=== PATIENT | male | born 1945 | race Hispanic/Latino ===

== ENCOUNTER 2019-04-11 15:09 | Emergency (ER) | payer MEDICARE, OTHER ==
[~2019-04-11] VITALS: Ht 170.2 cm; Wt 88.5 kg
--- OUTSIDE RECORDS SUMMARY | 2019-04-11 15:12 | XMS REPORT ---
Author Author [facility] Address Unknown Phone Unavailable Care Team Providers Care Career Development Manager Name Role Phone WILFRED BOATENG Unavailable Unavailable JUNE LISA Unavailable Unavailable Kavita MOORE Unavailable Unavailable Problems This patient has no known problems. Allergies, Adverse Reactions, Alerts This patient has no known allergies or adverse reactions. Medications This patient has no known medications. Results Test Description Test Time Test Comments Text Results Atomic Results Result Comments TSH/FREE T4 IF INDICATED 2019-01-07 12:37:00 THYROID STIMULATING HORMONE (BEAKER) (test dkxs=072) 1.93 uIU/mL 0.35-4.94 HEMOGLOBIN [id number] 12:36:00* Test Item Value Reference Range Comments HEMOGLOBIN A1C (BEAKER) (test affl=261) 5.8 % 4.3-6.1 COMPREHENSIVE METABOLIC [id number] 12:03:00* Test Item Value Reference Range Comments TOTAL PROTEIN (BEAKER) (test elnu=119) 7.4 gm/dL 6.0-8.3 ALBUMIN (BEAKER) (test ytil=1281) 4.4 g/dL 3.5-5.0 ALKALINE PHOSPHATASE (BEAKER) (test uvzj=726) 95 U/L 40-150 BILIRUBIN TOTAL (BEAKER) (test fyys=657) 0.4 mg/dL 0.2-1.2 SODIUM (BEAKER) (test niuu=776) 139 meq/L 136-145 POTASSIUM (BEAKER) (test oocm=749) 4.5 meq/L 3.5-5.1 CHLORIDE (BEAKER) (test fajc=161) 108 meq/L 98-107 CO2 (BEAKER) (test rcav=170) 23 meq/L 22-29 BLOOD UREA NITROGEN (BEAKER) (test hpbk=931) 24 mg/dL 7-21 CREATININE (BEAKER) (test prdn=273) 0.80 mg/dL 0.57-1.25 GLUCOSE RANDOM (BEAKER) (test tfib=919) 103 mg/dL 70-105 CALCIUM (BEAKER) (test snwa=521) 9.0 mg/dL 8.4-10.2 AST (SGOT) (BEAKER) (test mtcp=041) 18 U/L 5-34 ALT (SGPT) (BEAKER) (test bthd=969) 23 U/L 6-55 EGFR (BEAKER) (test iagp=6186) 95 mL/min/1.73 sq m ESTIMATED GFR IS NOT ACCURATE CREATININE CLEARANCE IN PREDICTING GLOMERULAR FILTRATION RATE. ESTIMATED GFR IS NOT APPLICABLE FOR DIALYSIS PATIENTS. CBC W/PLT COUNT & AUTO [id number] 11:43:00* Test Item Value Reference Range Comments WHITE BLOOD CELL COUNT (BEAKER) (test iaxb=394) 7.6 K/ L 3.5-10.5 RED BLOOD CELL COUNT (BEAKER) (test dysi=329) 4.60 M/ L 4.63-6.08 HEMOGLOBIN (BEAKER) (test omsc=013) 14.2 GM/DL 13.7-17.5 HEMATOCRIT (BEAKER) (test pxyy=536) 43.7 % 40.1-51.0 MEAN CORPUSCULAR VOLUME (BEAKER) (test bhso=587) 95.0 fL 79.0-92.2 MEAN CORPUSCULAR HEMOGLOBIN (BEAKER) (test tddz=508) 30.9 pg 25.7-32.2 MEAN CORPUSCULAR HEMOGLOBIN CONC (BEAKER) (test ktio=389) 32.5 GM/DL 32.3-36.5 RED CELL DISTRIBUTION WIDTH (BEAKER) (test wanu=952) 12.8 % 11.6-14.4 PLATELET COUNT (BEAKER) (test hoge=410) 250 K/CU MM 150-450 MEAN PLATELET VOLUME (BEAKER) (test owgg=467) 10.0 fL 9.4-12.4 NUCLEATED RED BLOOD CELLS (BEAKER) (test gbpe=103) 0 /100 WBC 0-0 NEUTROPHILS RELATIVE PERCENT (BEAKER) (test cnfx=436) 67 % LYMPHOCYTES RELATIVE PERCENT (BEAKER) (test taqv=575) 22 % MONOCYTES RELATIVE PERCENT (BEAKER) (test azno=554) 8 % EOSINOPHILS RELATIVE PERCENT (BEAKER) (test ellj=989) 3 % BASOPHILS RELATIVE PERCENT (BEAKER) (test acil=298) 1 % NEUTROPHILS ABSOLUTE COUNT (BEAKER) (test lfpd=268) 5.07 K/ L 1.78-5.38 LYMPHOCYTES ABSOLUTE COUNT (BEAKER) (test ucfe=750) 1.63 K/ L 1.32-3.57 MONOCYTES ABSOLUTE COUNT (BEAKER) (test agcj=499) 0.60 K/ L 0.30-0.82 EOSINOPHILS ABSOLUTE COUNT (BEAKER) (test qbxb=037) 0.19 K/ L 0.04-0.54 BASOPHILS ABSOLUTE COUNT (BEAKER) (test xilf=186) 0.04 K/ L 0.01-0.08 IMMATURE GRANULOCYTES-RELATIVE PERCENT (BEAKER) (test pmbu=3691) 0 % 0-1 HEMOGLOBIN [id number] 12:24:00* Test Item Value Reference Range Comments HEMOGLOBIN A1C (BEAKER) (test tkan=338) 6.2 % 4.3-6.1 TSH/FREE T4 IF [id number] 12:06:00* Test Item Value Reference Range Comments THYROID STIMULATING HORMONE (BEAKER) (test yzgw=051) 2.07 uIU/mL 0.35-4.94 LIPID [id number] 11:45:00* Test Item Value Reference Range Comments TRIGLYCERIDES (BEAKER) (test cldg=190) 175 mg/dL CHOLESTEROL (BEAKER) (test mroz=705) 65 mg/dL HDL CHOLESTEROL (BEAKER) (test lbgz=743) 22 mg/dL LDL CHOLESTEROL CALCULATED (BEAKER) (test bqda=559) 8 mg/dL Triglyceride Reference Range: Low Risk <150 Borderline 150-199 High Risk 200-499 Very High Risk >=500Cholesterol Reference Range: Low Risk <200 Borderline 200-239 High Risk >240HDL Cholesterol Reference Range: Low Risk >=60 High Risk <40LDL Cholesterol Reference Range: Optimal <100 Near Optimal 100-129 Borderline 130-159 High 160-189 Very High >=190 CBC W/PLT COUNT & AUTO [id number] 11:29:00* Test Item Value Reference Range Comments WHITE BLOOD CELL COUNT (BEAKER) (test qkid=511) 6.0 K/ L 3.5-10.5 RED BLOOD CELL COUNT (BEAKER) (test xqrk=290) 4.91 M/ L 4.63-6.08 HEMOGLOBIN (BEAKER) (test mvbc=904) 15.0 GM/DL 13.7-17.5 HEMATOCRIT (BEAKER) (test binh=611) 45.8 % 40.1-51.0 MEAN CORPUSCULAR VOLUME (BEAKER) (test ootg=482) 93.3 fL 79.0-92.2 MEAN CORPUSCULAR HEMOGLOBIN (BEAKER) (test myes=281) 30.5 pg 25.7-32.2 MEAN CORPUSCULAR HEMOGLOBIN CONC (BEAKER) (test qtbo=457) 32.8 GM/DL 32.3-36.5 RED CELL DISTRIBUTION WIDTH (BEAKER) (test dfnc=213) 12.4 % 11.6-14.4 PLATELET COUNT (BEAKER) (test vrlf=151) 237 K/CU MM 150-450 MEAN PLATELET VOLUME (BEAKER) (test pzty=171) 9.9 fL 9.4-12.4 NUCLEATED RED BLOOD CELLS (BEAKER) (test avwf=525) 0 /100 WBC 0-0 NEUTROPHILS RELATIVE PERCENT (BEAKER) (test wiwe=302) 62 % LYMPHOCYTES RELATIVE PERCENT (BEAKER) (test kfgw=180) 23 % MONOCYTES RELATIVE PERCENT (BEAKER) (test hcqd=228) 11 % EOSINOPHILS RELATIVE PERCENT (BEAKER) (test qbfv=510) 3 % BASOPHILS RELATIVE PERCENT (BEAKER) (test qpcp=402) 1 % NEUTROPHILS ABSOLUTE COUNT (BEAKER) (test huln=046) 3.73 K/ L 1.78-5.38 LYMPHOCYTES ABSOLUTE COUNT (BEAKER) (test wlcz=428) 1.39 K/ L 1.32-3.57 MONOCYTES ABSOLUTE COUNT (BEAKER) (test fcgw=954) 0.65 K/ L 0.30-0.82 EOSINOPHILS ABSOLUTE COUNT (BEAKER) (test otok=950) 0.17 K/ L 0.04-0.54 BASOPHILS ABSOLUTE COUNT (BEAKER) (test vojs=837) 0.04 K/ L 0.01-0.08 IMMATURE GRANULOCYTES-RELATIVE PERCENT (BEAKER) (test fzgp=5128) 1 % 0-1 CT, CHEST, WITHOUT [id number] 08:41:00FINAL REPORT TECHNIQUE: CT scan of the chest WITHOUT intravenous contrast. Dose modulation, iterative reconstruction, and/or weight-based adjustment of the mA/kV was utilized to reduce the radiation dose to as low as reasonably achievable. INDICATION: 72-year-old man with lung nodule. COMPARISON: Chest CTs 11/27/2016, 11/12/2015, and 01/03/2015. FINDINGS: ABSENCE OF INTRAVENOUS CONTRAST DECREASES SENSITIVITY FOR DETECTION OF FOCAL LESIONS AND VASCULAR PATHOLOGY. LINES/TUBES: None. LUNGS AND AIRWAYS: Central airways are patent. No con solidation or new pulmonary nodule. Unchanged benign scattered 3-5 mm bilateral pulmonary nodules. PLEURA: The pleural spaces are clear. HEART AND MEDIASTINUM: The visualized thyroid gland is normal. No significant mediastinal, hilar, or ax illary lymphadenopathy. The heart and pericardium are within normal limits. Athe rosclerotic coronary artery calcifications. Prominent main pulmonary artery hilda ures approximately 4 cm in diameter. SOFT TISSUES AND BONES: Degenerative change s of the visualized spine. 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 UPPER ABDOMEN: Prior cholecystectomy. Cyst in the visualized kidneys measure 2 cm on the right and 1.3 cm on the left. IMPRESSION:No acute or suspicious abnormalities in the chest. Unchanged benign 3-5 mm bilateral pulm onary nodules. No follow-up imaging recommended for these pulmonary nodules. Pro minent pulmonary artery, suggestive of pulmonary hypertension. Signed: Jarrett Montejo Verified Date/Time: 12/04/2017 08:41:38 Reading Location: [facility] Diagnostic Imaging Reading Room - [place] [address] GLOBIN [id number] 13:10:00* Test Item Value Reference Range Comments HEMOGLOBIN A1C (BEAKER) (test bjwz=072) 6.2 % 4.3-6.1 TSH/FREE T4 IF [id number] 12:07:00* Test Item Value Reference Range Comments THYROID STIMULATING HORMONE (BEAKER) (test xntw=302) 2.06 uIU/mL 0.35-4.94 LIPID [id number] 11:46:00* Test Item Value Reference Range Comments TRIGLYCERIDES (BEAKER) (test fbpg=058) 167 mg/dL CHOLESTEROL (BEAKER) (test fqlv=367) 72 mg/dL HDL CHOLESTEROL (BEAKER) (test soit=257) 25 mg/dL LDL CHOLESTEROL CALCULATED (BEAKER) (test rjxo=658) 14 mg/dL Triglyceride Reference Range: Low Risk <150 Borderline 150-199 High Risk 200-499 Very High Risk >=500Cholesterol Reference Range: Low Risk <200 Borderline 200-239 High Risk >240HDL Cholesterol Reference Range: Low Risk >=60 High Risk <40LDL Cholesterol Reference Range: Optimal <100 Near Optimal 100-129 Borderline 130-159 High 160-189 Very High >=190 COMPREHENSIVE METABOLIC [id number] 11:46:00* Test Item Value Reference Range Comments TOTAL PROTEIN (BEAKER) (test ljuo=647) 7.3 gm/dL 6.0-8.3 ALBUMIN (BEAKER) (test rhpe=5770) 4.3 g/dL 3.5-5.0 ALKALINE PHOSPHATASE (BEAKER) (test fbfe=150) 78 U/L 40-150 BILIRUBIN TOTAL (BEAKER) (test namb=620) 0.8 mg/dL 0.2-1.2 SODIUM (BEAKER) (test dplc=717) 140 meq/L 136-145 POTASSIUM (BEAKER) (test cjvc=758) 4.7 meq/L 3.5-5.1 CHLORIDE (BEAKER) (test xhie=328) 105 meq/L 98-107 CO2 (BEAKER) (test dcoc=048) 28 meq/L 22-29 BLOOD UREA NITROGEN (BEAKER) (test vbcj=888) 16 mg/dL 7-21 CREATININE (BEAKER) (test gwie=554) 0.74 mg/dL 0.57-1.25 GLUCOSE RANDOM (BEAKER) (test wfuh=093) 115 mg/dL 70-105 CALCIUM (BEAKER) (test blnh=301) 9.5 mg/dL 8.4-10.2 AST (SGOT) (BEAKER) (test netm=237) 19 U/L 5-34 ALT (SGPT) (BEAKER) (test yueu=218) 32 U/L 6-55 EGFR (BEAKER) (test cgkg=6106) 105 mL/min/1.73 sq m ESTIMATED GFR IS NOT ACCURATE CREATININE CLEARANCE IN PREDICTING GLOMERULAR FILTRATION RATE. ESTIMATED GFR IS NOT APPLICABLE FOR DIALYSIS PATIENTS. CBC W/PLT COUNT & AUTO [id number] 11:23:00* Test Item Value Reference Range Comments WHITE BLOOD CELL COUNT (BEAKER) (test wfmw=721) 6.9 K/ L 3.5-10.5 RED BLOOD CELL COUNT (BEAKER) (test xiew=542) 4.75 M/ L 4.63-6.08 HEMOGLOBIN (BEAKER) (test hwdx=914) 14.5 GM/DL 13.7-17.5 HEMATOCRIT (BEAKER) (test eskc=066) 43.6 % 40.1-51.0 MEAN CORPUSCULAR VOLUME (BEAKER) (test vist=606) 91.8 fL 79.0-92.2 MEAN CORPUSCULAR HEMOGLOBIN (BEAKER) (test fvto=761) 30.5 pg 25.7-32.2 MEAN CORPUSCULAR HEMOGLOBIN CONC (BEAKER) (test gfse=775) 33.3 GM/DL 32.3-36.5 RED CELL DISTRIBUTION WIDTH (BEAKER) (test lngk=846) 12.5 % 11.6-14.4 PLATELET COUNT (BEAKER) (test aobg=025) 227 K/CU MM 150-450 MEAN PLATELET VOLUME (BEAKER) (test rxgl=002) 10.0 fL 9.4-12.4 NUCLEATED RED BLOOD CELLS (BEAKER) (test bird=604) 0 /100 WBC 0-0 NEUTROPHILS RELATIVE PERCENT (BEAKER) (test aewy=608) 65 % LYMPHOCYTES RELATIVE PERCENT (BEAKER) (test honq=278) 22 % MONOCYTES RELATIVE PERCENT (BEAKER) (test szcz=953) 10 % EOSINOPHILS RELATIVE PERCENT (BEAKER) (test ifde=613) 3 % BASOPHILS RELATIVE PERCENT (BEAKER) (test jubz=028) 1 % NEUTROPHILS ABSOLUTE COUNT (BEAKER) (test ywjy=758) 4.49 K/ L 1.78-5.38 LYMPHOCYTES ABSOLUTE COUNT (BEAKER) (test ycpy=698) 1.49 K/ L 1.32-3.57 MONOCYTES ABSOLUTE COUNT (BEAKER) (test arsv=565) 0.69 K/ L 0.30-0.82 EOSINOPHILS ABSOLUTE COUNT (BEAKER) (test ucgu=603) 0.19 K/ L 0.04-0.54 BASOPHILS ABSOLUTE COUNT (BEAKER) (test pcyw=427) 0.04 K/ L 0.01-0.08 IMMATURE GRANULOCYTES-RELATIVE PERCENT (BEAKER) (test tssa=4537) 0 % 0-1 CT, BRAIN, WITHOUT [id number] 13:44:00FINAL REPORT CT head without contrast 04/01/2017 1:42 PM CLINICAL HISTORY: vertigo TECHNIQUE: Axial noncontrast CT images through the head were obtained. This examination was performed according to our departmental dose optimization program, which includes automated exposure control, adjustment of the mA and/or kV according to patient size, and/or use of iterated reconstruction technique. COMPARISON: 06/18/2016, 12/05/2014 FINDINGS: There is no hemorrhage, extra-axial collection, mass, hydrocephalus, or midline shift. There is small volume encephalomalacia in both peripetrous temporal lobes, as well as within the left frontoparietal operculum. There is generalized parenchymal volume loss. The visualized paranasal sinuses and mastoid air cells are well aerated. Chronic posttraumatic changes are suspected in the left maxilla and left nasal bone. The skull is otherwise intact. IMPRESSION: No intracranial hemorrhage or mass eff ect. Chronic appearing findings as discussed, stable when compared to 06/18/2016. If concern for acute pathology persists, further evaluation with MRI is recomme nded. Signed: Aubrey Gimenezeport Verified Date/Time: 04/01/2017 13:44:54 Reading Location: [facility] Rad[facility] Reading Room /[id number] 11:56:00* Test Item Value Reference Range Comments PROTIME (BEAKER) (test qibw=342) 14.2 seconds 11.7-14.7 INR (BEAKER) (test aifu=578) 1.1 <=5.9 PARTIAL THROMBOPLASTIN TIME (BEAKER) (test mmkh=072) 32.6 seconds 22.5-36.0 RECOMMENDED COUMADIN/WARFARIN INR THERAPY RANGESSTANDARD DOSE: 2.0 - 3.0 Inclu anais: PROPHYLAXIS for venous thrombosis, systemic embolization; TREATMENT for lauren ous thrombosis and/or pulmonary embolus.HIGH RISK: Target INR is 2.5-3.5 for pat ients with mechanical heart valves.CBC W/PLT COUNT & AUTO [id number] 11:52:00* Test Item Value Reference Range Comments WHITE BLOOD CELL COUNT (BEAKER) (test izqg=824) 8.4 K/ L 4.0-10.0 RED BLOOD CELL COUNT (BEAKER) (test lcxy=062) 4.67 M/ L 4.20-5.80 HEMOGLOBIN (BEAKER) (test lafg=810) 14.3 GM/DL 13.0-16.8 HEMATOCRIT (BEAKER) (test mbkl=407) 43.3 % 40.0-50.0 MEAN CORPUSCULAR VOLUME (BEAKER) (test kibg=694) 92.6 fL 82.0-98.0 MEAN CORPUSCULAR HEMOGLOBIN (BEAKER) (test spqw=349) 30.7 pg 27.0-33.0 MEAN CORPUSCULAR HEMOGLOBIN CONC (BEAKER) (test axsj=551) 33.1 GM/DL 32.0-36.0 RED CELL DISTRIBUTION WIDTH (BEAKER) (test cztk=490) 13.5 % 10.3-14.2 PLATELET COUNT (BEAKER) (test inkc=044) 226 K/CU MM 150-430 MEAN PLATELET VOLUME (BEAKER) (test ombr=146) 8.0 fL 6.5-10.5 NUCLEATED RED BLOOD CELLS (BEAKER) (test oyxn=108) 0 /100 WBC 0-0 NEUTROPHILS RELATIVE PERCENT (BEAKER) (test svcz=029) 66 % LYMPHOCYTES RELATIVE PERCENT (BEAKER) (test xvzx=563) 24 % MONOCYTES RELATIVE PERCENT (BEAKER) (test rytp=776) 8 % EOSINOPHILS RELATIVE PERCENT (BEAKER) (test jyjz=194) 1 % BASOPHILS RELATIVE PERCENT (BEAKER) (test jddp=582) 1 % NEUTROPHILS ABSOLUTE COUNT (BEAKER) (test bzfy=386) 5.54 K/ L 1.80-8.00 LYMPHOCYTES ABSOLUTE COUNT (BEAKER) (test msqa=338) 2.01 K/ L 1.48-4.50 MONOCYTES ABSOLUTE COUNT (BEAKER) (test dndr=482) 0.71 K/ L 0.00-1.30 EOSINOPHILS ABSOLUTE COUNT (BEAKER) (test srki=190) 0.10 K/ L 0.00-0.50 BASOPHILS ABSOLUTE COUNT (BEAKER) (test exrx=231) 0.06 K/ L 0.00-0.20 0.00CBC W/PLT COUNT & AUTO [id number] 05:20:00* Test Item Value Reference Range Comments WHITE BLOOD CELL COUNT (BEAKER) (test prgi=065) 12.7 K/ L 4.0-10.0 RED BLOOD CELL COUNT (BEAKER) (test chqs=736) 4.78 M/ L 4.20-5.80 HEMOGLOBIN (BEAKER) (test olsr=524) 14.9 GM/DL 13.0-16.8 HEMATOCRIT (BEAKER) (test trfw=454) 44.4 % 40.0-50.0 MEAN CORPUSCULAR VOLUME (BEAKER) (test olpi=094) 93.0 fL 82.0-98.0 MEAN CORPUSCULAR HEMOGLOBIN (BEAKER) (test mhao=733) 31.1 pg 27.0-33.0 MEAN CORPUSCULAR HEMOGLOBIN CONC (BEAKER) (test pkhj=824) 33.5 GM/DL 32.0-36.0 RED CELL DISTRIBUTION WIDTH (BEAKER) (test xdrm=600) 11.8 % 10.3-14.2 PLATELET COUNT (BEAKER) (test clar=491) 242 K/CU MM 150-430 MEAN PLATELET VOLUME (BEAKER) (test sfqt=318) 7.5 fL 6.5-10.5 NUCLEATED RED BLOOD CELLS (BEAKER) (test kirh=504) 0 /100 WBC 0-0 NEUTROPHILS RELATIVE PERCENT (BEAKER) (test pymg=743) 90 % LYMPHOCYTES RELATIVE PERCENT (BEAKER) (test kedc=318) 8 % MONOCYTES RELATIVE PERCENT (BEAKER) (test ubon=970) 1 % EOSINOPHILS RELATIVE PERCENT (BEAKER) (test qovw=911) 0 % BASOPHILS RELATIVE PERCENT (BEAKER) (test gupu=275) 0 % NEUTROPHILS ABSOLUTE COUNT (BEAKER) (test ohxb=550) 11.50 K/ L 1.80-8.00 LYMPHOCYTES ABSOLUTE COUNT (BEAKER) (test alpy=712) 1.03 K/ L 1.48-4.50 MONOCYTES ABSOLUTE COUNT (BEAKER) (test bcuy=276) 0.19 K/ L 0.00-1.30 EOSINOPHILS ABSOLUTE COUNT (BEAKER) (test swjf=725) 0.02 K/ L 0.00-0.50 BASOPHILS ABSOLUTE COUNT (BEAKER) (test kocb=275) 0.01 K/ L 0.00-0.20 0.00BASI METABOLIC [id number] 05:19:00* Test Item Value Reference Range Comments SODIUM (BEAKER) (test vgnk=885) 136 meq/L 136-145 POTASSIUM (BEAKER) (test pdgz=583) 4.0 meq/L 3.5-5.1 CHLORIDE (BEAKER) (test kxyh=376) 105 meq/L 98-107 CO2 (BEAKER) (test tqhr=411) 22 meq/L 22-29 BLOOD UREA NITROGEN (BEAKER) (test qtgq=793) 15 mg/dL 7-21 CREATININE (BEAKER) (test gsuk=580) 0.69 mg/dL 0.57-1.25 GLUCOSE RANDOM (BEAKER) (test chbr=665) 137 mg/dL 70-105 CALCIUM (BEAKER) (test hfgg=354) 8.9 mg/dL 8.4-10.2 EGFR (BEAKER) (test pcpz=4738) 113 mL/min/1.73 sq m ESTIMATED GFR IS NOT ACCURATE CREATININE CLEARANCE IN PREDICTING GLOMERULAR FILTRATION RATE. ESTIMATED GFR IS NOT APPLICABLE FOR DIALYSIS PATIENTS. [id number] 02:18:00* Test Item Value Reference Range Comments ACTIVATED CLOTTING TIME (BEAKER) (test cmou=406) 152 sec TESTED AT [place] [address] [id number] 22:49:00* Test Item Value Reference Range Comments ACTIVATED CLOTTING TIME (BEAKER) (test fidy=343) 152 sec TESTED AT [place] [address] [id number] 21:26:00* Test Item Value Reference Range Comments ACTIVATED CLOTTING TIME (BEAKER) (test haht=675) 162 sec TESTED AT [place] [address] [id number] 17:19:00* Test Item Value Reference Range Comments ACTIVATED CLOTTING TIME (BEAKER) (test cvvv=496) 204 sec TESTED AT [place] [address] [id number] 15:16:00* Test Item Value Reference Range Comments ACTIVATED CLOTTING TIME (BEAKER) (test qntk=668) 260 sec TESTED AT [place] [address] [id number] 15:16:00* Test Item Value Reference Range Comments ACTIVATED CLOTTING TIME (BEAKER) (test fyub=625) 271 sec TESTED AT [facility] [address] [facility] [address] COMPREHENSIVE METABOLIC [id number] 12:43:00* Test Item Value Reference Range Comments TOTAL PROTEIN (BEAKER) (test bmxw=396) 6.6 gm/dL 6.0-8.3 ALBUMIN (BEAKER) (test qonu=0055) 4.0 g/dL 3.5-5.0 ALKALINE PHOSPHATASE (BEAKER) (test fpnl=850) 81 U/L 40-150 BILIRUBIN TOTAL (BEAKER) (test ehra=135) 0.8 mg/dL 0.2-1.2 SODIUM (BEAKER) (test xoum=140) 140 meq/L 136-145 POTASSIUM (BEAKER) (test orib=391) 4.2 meq/L 3.5-5.1 CHLORIDE (BEAKER) (test pusd=047) 106 meq/L 98-107 CO2 (BEAKER) (test rjgm=965) 26 meq/L 22-29 BLOOD UREA NITROGEN (BEAKER) (test boio=689) 15 mg/dL 7-21 CREATININE (BEAKER) (test ofmo=712) 0.74 mg/dL 0.57-1.25 GLUCOSE RANDOM (BEAKER) (test pugq=055) 111 mg/dL 70-105 CALCIUM (BEAKER) (test xfea=429) 8.9 mg/dL 8.4-10.2 AST (SGOT) (BEAKER) (test mpwj=680) 18 U/L 5-34 ALT (SGPT) (BEAKER) (test cbvl=783) 28 U/L 6-55 EGFR (BEAKER) (test wvpo=4223) 105 mL/min/1.73 sq m ESTIMATED GFR IS NOT ACCURATE CREATININE CLEARANCE IN PREDICTING GLOMERULAR FILTRATION RATE. ESTIMATED GFR IS NOT APPLICABLE FOR DIALYSIS PATIENTS. CBC (HEMOGRAM ONLY)2016-10-27 12:31:00* Test Item Value Reference Range Comments WHITE BLOOD CELL COUNT (BEAKER) (test cxcn=937) 7.3 K/ L 4.0-10.0 RED BLOOD CELL COUNT (BEAKER) (test negr=366) 4.58 M/ L 4.20-5.80 HEMOGLOBIN (BEAKER) (test lgjq=419) 14.6 GM/DL 13.0-16.8 HEMATOCRIT (BEAKER) (test fwpp=746) 42.6 % 40.0-50.0 MEAN CORPUSCULAR VOLUME (BEAKER) (test lopg=324) 93.2 fL 82.0-98.0 MEAN CORPUSCULAR HEMOGLOBIN (BEAKER) (test wyqu=938) 31.8 pg 27.0-33.0 MEAN CORPUSCULAR HEMOGLOBIN CONC (BEAKER) (test copq=128) 34.2 GM/DL 32.0-36.0 RED CELL DISTRIBUTION WIDTH (BEAKER) (test bulg=125) 11.9 % 10.3-14.2 PLATELET COUNT (BEAKER) (test dbjg=738) 217 K/CU MM 150-430 MEAN PLATELET VOLUME (BEAKER) (test qlvv=111) 7.2 fL 6.5-10.5 NUCLEATED RED BLOOD CELLS (BEAKER) (test gino=986) 0 /100 WBC 0-0 0.00
[2019-04-11] MEDS ORDERED: ONDANSETRON HCL 4 MG ORAL DISINTEGRATING TAB PO ONE (15:45)
[2019-04-11] MEDS ORDERED: MECLIZINE HCL 12.5 MG TAB PO ONE (15:45)
[2019-04-11] MEDS ORDERED: MECLIZINE HCL 12.5 MG TAB ONE ×2 (15:53→15:56)
[2019-04-11] MEDS ORDERED: ONDANSETRON HCL 4 MG ORAL DISINTEGRATING TAB ONE (15:53)
--- NOTE | 2019-04-11 16:34 | NUR ---
PT STATED HE FEELS 100% BETTER AFTER MEDICATIONS, PT STATED NAUSEA AND DIZZINESS ARE NOW GONE.
[2019-04-11 16:36] VITALS: BP 130/72
== END 2019-04-11 16:59 | disposition home or self-care (01) ==
LOC: FSED 15:09
DX: H81.13 Benign paroxysmal vertigo, bilateral (principal); R11.0 Nausea
CPT/HCPCS: 99283; J8597; Q0162